=== PATIENT | female | born 1955 | race African-American/Black ===

== ENCOUNTER → 2017-02-06 | Outpatient (CLI) | payer OTHER ==
--- NOTE | 2017-02-06 12:22 | RADIOLOGY REPORT (SQ) ---
EXAM DESCRIPTION: RIBS LEFT W/PA CHEST COMPLETED DATE/TIME: 02/06/2017 11:56 am REASON FOR STUDY: CHEST PAIN R07.9 CHEST PAIN, UNSPECIFIED M25.512 PAIN IN LEFT SHOULDER COMPARISON: None. TECHNIQUE: Frontal view of the chest and additional views of the left ribs acquired. NUMBER OF VIEWS: Three views LIMITATIONS: None. FINDINGS: FRONTAL CXR: No pneumothorax. No pleural effusion. No atelectasis or infiltrates. RIBS: No displaced rib fractures. No lytic or blastic bony lesions. OTHER: No other significant finding. IMPRESSION: NO PNEUMOTHORAX. NO DISPLACED RIB FRACTURES. COMMENT: SITE OF TRAUMA/COMPLAINT MARKED/STAMP COMPLETED: Yes TECHNICAL DOCUMENTATION: JOB ID: [id number] [employer]- All Rights Reserved
--- NOTE | 2017-02-06 12:23 | RADIOLOGY REPORT (SQ) ---
EXAM DESCRIPTION: SHOULDER LEFT 2 OR MORE VIEWS COMPLETED DATE/TIME: 02/06/2017 11:56 am REASON FOR STUDY: PAIN IN LEFT SHOULDER R07.9 CHEST PAIN, UNSPECIFIED M25.512 PAIN IN LEFT SHOULDE R COMPARISON: None. NUMBER OF VIEWS: Three views. TECHNIQUE: Internal rotation, external rotation, and Y view images acquired of the left shoulder. LIMITATIONS: None. FINDINGS: MINERALIZATION: Normal. BONES: No acute fracture or dislocation. No worrisome bone lesions. JOINTS: No dislocation. VISUALIZED LUNGS AND RIBS: No pneumothorax. No rib fracture. SOFT TISSUES: No radiopaque foreign body. OTHER: No other significant finding. IMPRESSION: NEGATIVE STUDY OF THE LEFT SHOULDER. NO RADIOGRAPHIC EVIDENCE OF ACUTE INJURY. TECHNICAL DOCUMENTATION: JOB ID: [id number] [employer]- All Rights Reserved
== END ==
LOC: RAD 11:32
DX: R07.9 Chest pain, unspecified (principal); M25.512 Pain in left shoulder

== ENCOUNTER 2017-07-18 11:55 | Observation (INO) | payer SELFPAY ==
[2017-07-18] MEDS ORDERED: NORMAL SALINE 1000 ML 1,000 ML IV ONE (12:23)
--- NOTE | 2017-07-18 12:30 | ER Document Report ---
ED Medical Screen (RME) - General Chief Complaint: High Blood Sugar Stated Complaint: ELEVATED BLOOD SUGAR Time Seen by Provider: 07/18/17 12:22 Notes: RAPID MEDICAL EVALUATION DISCLOSURE I have seen this patient as part of a Rapid Medical Evaluation and, if applicable, placed any initially appropriate orders. The patient will be seen and fully evaluated, including a full history and physical exam, by a provider ( in Main ED or Fast Track) when a room becomes available. 61-year-old female no prior history of diabetes sent here from the [facility] for elevated blood sugar of 580. She was seen there for bilateral shoulder pain and was going to be put on steroids so they checked her blood sugar however noted that it was elevated. They then gave her a shot of insulin and checked it again 20 minutes later and it was unchanged. Over the past 2 weeks the patient has been having moderate burning with urination and felt like she might have a urine infection so she went to the pharmacy and purchased some [id number] medication for UTI. Her symptoms have not improved and she continues to have the burning with urination. She denies having any cough congestion runny nose sore throat diarrhea but did have an episode of vomiting 2 days ago and since then has been having lightheadedness and generalized weakness. NOTE Echocardiogram from 2016 reveals EF greater than 60% TRAVEL OUTSIDE OF THE [place] IN LAST 30 DAYS: No - Related Data Allergies/Adverse Reactions: No Known Allergies Allergy (Verified 07/18/17 11:56) Past Medical History - Social History Chew tobacco use (# tins/day): No Frequency of alcohol use: None Drug Abuse: None - Past Medical History Cardiac Medical History: Reports: Hx Congestive Heart Failure, Hx Hypertension Denies: Hx DVT, Hx Heart Attack, Hx Pulmonary Embolism Pulmonary Medical History: Denies: Hx Asthma, Hx COPD Neurological Medical History: Denies: Hx Seizures Endocrine Medical History: Denies: Hx Diabetes Mellitus Type 1, Hx Diabetes Mellitus Type 2, Hx Hyperthyroidism, Hx Hypothyroidism Renal/ Medical History: Denies: Hx Peritoneal Dialysis GI Medical History: Reports: Hx Gastroesophageal Reflux Disease. Denies: Hx Cirrhosis, Hx Hepatitis Musculoskeltal Medical History: Denies Hx Arthritis Skin Medical History: Denies Hx Eczema, Denies Hx Psoriasis Psychiatric Medical History: Reports: Hx Depression Infectious Medical History: Denies: Hx Hepatitis Past Surgical History: Reports: Hx Appendectomy, Hx Section, Hx Hysterectomy - Immunizations Hx Diphtheria, Pertussis, Tetanus Vaccination: No Physical Exam - Vital signs Vitals: Temp Pulse Resp BP Pulse Ox 98.6 F 83 20 93/59 L 97 07/18/17 12:15 07/18/17 12:15 07/18/17 12:15 07/18/17 12:15 07/18/17 12:15 Course - Vital Signs Vital signs: Temp Pulse Resp BP Pulse Ox 98.6 F 83 20 93/59 L 97 07/18/17 12:15 07/18/17 12:15 07/18/17 12:15 07/18/17 12:15 07/18/17 12:15
--- NOTE | 2017-07-18 12:39 | ER Document Report ---
ED Blood Sugar Problem - General Chief Complaint: High Blood Sugar Stated Complaint: ELEVATED BLOOD SUGAR Time Seen by Provider: 07/18/17 12:22 Notes: This is a 61-year-old female patient who presents from an outpatient clinic for evaluation of hyperglycemia. Patient has been having polydipsia and polyuria with blurred vision and generally not feeling well over the last several weeks. Went to the clinic today and blood sugar was found to be elevated. Received a shot of long-acting insulin and sent to the emergency department for further evaluation. Patient denies any loss of consciousness. Denies any significant chest pain. Denies any other major issues at this time. Patient states that she has never been told she has diabetes. Has been told in the past that she had high blood pressure but now her blood pressure is low. States that she used to run a lot and has always been quite healthy so is shocked to find out that she may have diabetes. TRAVEL OUTSIDE OF THE [place] IN LAST 30 DAYS: No - HPI Onset: Last week Onset/Duration: Gradual, Worse Quality of pain: No pain - Related Data Allergies/Adverse Reactions: No Known Allergies Allergy (Verified 07/18/17 11:56) Past Medical History - General Information source: Patient - Social History Smoking Status: Former Smoker Cigarette use (# per day): No Chew tobacco use (# tins/day): No Frequency of alcohol use: None Drug Abuse: None Lives with: Family Family History: Reviewed & Not Pertinent Patient has suicidal ideation: No Patient has homicidal ideation: No - Past Medical History Cardiac Medical History: Reports: Hx Congestive Heart Failure, Hx Hypertension Denies: Hx DVT, Hx Heart Attack, Hx Pulmonary Embolism Pulmonary Medical History: Denies: Hx Asthma, Hx COPD Neurological Medical History: Denies: Hx Seizures Endocrine Medical History: Denies: Hx Diabetes Mellitus Type 1, Hx Diabetes Mellitus Type 2, Hx Hyperthyroidism, Hx Hypothyroidism Renal/ Medical History: Denies: Hx Peritoneal Dialysis GI Medical History: Reports: Hx Gastroesophageal Reflux Disease. Denies: Hx Cirrhosis, Hx Hepatitis Musculoskeltal Medical History: Denies Hx Arthritis Skin Medical History: Denies Hx Eczema, Denies Hx Psoriasis Psychiatric Medical History: Reports: Hx Depression Infectious Medical History: Denies: Hx Hepatitis Past Surgical History: Reports: Hx Appendectomy, Hx Section, Hx Hysterectomy - Immunizations Hx Diphtheria, Pertussis, Tetanus Vaccination: No Review of Systems - Review of Systems Constitutional: Malaise, Weakness. denies: Fever EENT: Blurred vision. denies: Throat pain, Difficulty swallowing, Throat swelling Cardiovascular: denies: Chest pain, Palpitations, Heart racing Respiratory: denies: Cough, Hurts to breathe, Short of breath, Wheezing Gastrointestinal: denies: Abdominal pain, Diarrhea, Nausea, Vomiting Genitourinary: denies: Burning, Dysuria, Frequency, Flank pain Musculoskeletal: denies: Back pain, Gout, Joint pain Skin: denies: Dryness, Lesions, Rash Hematologic/Lymphatic: Other - Describes polydipsia and polyuria. denies: Anemia, Blood clots, Easy bleeding, Easy bruising Neurological/Psychological: Weakness. denies: Confusion, Numbness Physical Exam - Vital signs Vitals: Temp Pulse Resp BP Pulse Ox 98.6 F 83 20 93/59 L 97 07/18/17 12:15 07/18/17 12:15 07/18/17 12:15 07/18/17 12:15 07/18/17 12:15 Interpretation: Normal - General General appearance: Appears well, Alert - HEENT Head: Normocephalic, Atraumatic Eyes: Normal Pupils: PERRL - Respiratory Respiratory status: No respiratory distress Chest status: Nontender Breath sounds: Normal Chest palpation: Normal - Cardiovascular Rhythm: Regular Heart sounds: Normal auscultation Murmur: No - Abdominal Inspection: Normal Distension: No distension Bowel sounds: Normal Tenderness: Nontender Organomegaly: No organomegaly - Back Back: Normal, Nontender - Extremities General upper extremity: Normal inspection, Nontender, Normal color, Normal ROM , Normal temperature General lower extremity: Normal inspection, Nontender, Normal color, Normal ROM , Normal temperature, Normal weight bearing. No: Jeny's sign - Neurological Neuro grossly intact: Yes Cognition: Normal Orientation: AAOx4 Stephan Coma Scale Eye Opening: Spontaneous Coretta Coma Scale Verbal: Oriented Coretta Coma Scale Motor: Obeys Commands Coretta Coma Scale Total: 15 Speech: Normal Motor strength normal: LUE, RUE, LLE, RLE Sensory: Normal - Psychological Associated symptoms: Normal affect, Normal mood - Skin Skin Temperature: Warm Skin Moisture: Dry Skin Color: Normal Course - Re-evaluation Re-evalutation: 07/18/17 14:16 Laboratory 07/18/17 07/18/17 07/18/17 12:46 12:46 12:46 WBC 9.5 RBC 3.56 L Hgb 11.7 L Hct 36.1 MCV 101 H MCH 32.9 MCHC 32.4 RDW 14.9 H Plt Count 304 Seg Neutrophils % 54.4 Lymphocytes % 32.3 Monocytes % 7.5 Eosinophils % 4.2 Basophils % 1.6 Absolute Neutrophils 5.2 Absolute Lymphocytes 3.1 Absolute Monocytes 0.7 Absolute Eosinophils 0.4 Absolute Basophils 0.2 VBG pH 7.40 VBG pCO2 28.2 L VBG HCO3 17.0 L VBG Base Excess -6.6 Sodium 138.4 Potassium 3.6 Chloride 99 Carbon Dioxide 21 L Anion Gap 18 BUN 4 L Creatinine 0.53 Est GFR ( Amer) > 60 Est GFR (Non-Af Amer) > 60 Glucose 562 H* Hemoglobin A1c % Calcium 9.2 Phosphorus 3.0 Magnesium 2.1 Total Bilirubin 0.3 Direct Bilirubin 0.3 Neonat Total Bilirubin Not Reportable Neonat Direct Bilirubin Not Reportable Neonat Indirect Bili Not Reportable AST 51 H ALT 37 Alkaline Phosphatase 72 Troponin I Total Protein 6.7 Albumin 3.8 Urine Color Urine Appearance Urine pH Ur Specific [place] Urine Protein Urine Glucose (UA) Urine Ketones Urine Blood Urine Nitrite Urine Bilirubin Urine Urobilinogen Ur Leukocyte Esterase Urine WBC (Auto) Urine RBC (Auto) Urine Ascorbic Acid 07/18/17 07/18/17 07/18/17 12:46 12:46 12:57 WBC RBC Hgb Hct MCV MCH MCHC RDW Plt Count Seg Neutrophils % Lymphocytes % Monocytes % Eosinophils % Basophils % Absolute Neutrophils Absolute Lymphocytes Absolute Monocytes Absolute Eosinophils Absolute Basophils VBG pH VBG pCO2 VBG HCO3 VBG Base Excess Sodium Potassium Chloride Carbon Dioxide Anion Gap BUN Creatinine Est GFR ( Amer) Est GFR (Non-Af Amer) Glucose Hemoglobin A1c % 9.3 H Calcium Phosphorus Magnesium Total Bilirubin Direct Bilirubin Neonat Total Bilirubin Neonat Direct Bilirubin Neonat Indirect Bili AST ALT Alkaline Phosphatase Troponin I < 0.012 Total Protein Albumin Urine Color COLORLESS Urine Appearance CLEAR Urine pH 5.0 Ur Specific [place] 1.017 Urine Protein NEGATIVE Urine Glucose (UA) >=500 H Urine Ketones NEGATIVE Urine Blood NEGATIVE Urine Nitrite NEGATIVE Urine Bilirubin NEGATIVE Urine Urobilinogen NEGATIVE Ur Leukocyte Esterase NEGATIVE Urine WBC (Auto) 0 Urine RBC (Auto) 0 Urine Ascorbic Acid NEGATIVE At this time patient has blood sugar over 500. Hemoglobin A1c of 9.3. Glucose the urine. Patient has some limited outpatient resources. Feel uncomfortable discharging. Would like to admit her at this time. Consult with medicine who will admit for treatment of her new onset diabetes. - Vital Signs Vital signs: Temp Pulse Resp BP Pulse Ox 98.6 F 83 17 102/79 98 07/18/17 12:15 07/18/17 12:15 07/18/17 13:01 07/18/17 13:01 07/18/17 13:01 - Laboratory Result Diagrams: 07/18/17 12:46 07/18/17 12:46 Laboratory results interpreted by me: 07/18/17 07/18/17 07/18/17 12:46 12:46 12:46 RBC 3.56 L Hgb 11.7 L MCV 101 H RDW 14.9 H VBG pCO2 28.2 L VBG HCO3 17.0 L Carbon Dioxide 21 L BUN 4 L Glucose 562 H* Hemoglobin A1c % AST 51 H Urine Glucose (UA) 07/18/17 07/18/17 12:46 12:57 RBC Hgb MCV RDW VBG pCO2 VBG HCO3 Carbon Dioxide BUN Glucose Hemoglobin A1c % 9.3 H AST Urine Glucose (UA) >=500 H - EKG Interpretation by Ga EKG shows normal: Sinus rhythm, [place], Intervals, QRS Complexes, ST-T Waves Discharge - Discharge Clinical Impression: Hyperglycemia due to type 2 diabetes mellitus Qualifiers: Diabetes mellitus rat exterminator insulin use: without rat exterminator use Qualified Code(s ): E11.65 - Type 2 diabetes mellitus with hyperglycemia Condition: Good Disposition: ADMITTED INPATIENT Admitting Provider: [facility] Unit Admitted: Medical Floor
[2017-07-18 13:00] LABS: ABSOLUTE BASOPHILS # (AUTO) 0.2 10^3/uL (0.0-0.2); ABSOLUTE EOSINOPHILS # (AUTO) 0.4 10^3/uL (0.0-0.6); ABSOLUTE LYMPHOCYTES (AUTO) 3.1 10^3/uL (0.5-4.7); ABSOLUTE MONOCYTES (AUTO) 0.7 10^3/uL (0.1-1.4); ABSOLUTE NEUT (AUTO) 5.2 10^3/uL (1.7-8.2); BASOPHILS % (AUTO) 1.6 % (0-2); EOSINOPHILS % (AUTO) 4.2 % (0-6); HEMATOCRIT 36.1 % (36.0-47.0); HEMOGLOBIN 11.7 g/dL (12.0-15.5); LYMPHOCYTES % (AUTO) 32.3 % (13-45); MEAN CORPUSCULAR HEMOGLOBIN 32.9 pg (27.0-33.4); MEAN CORPUSCULAR HGB CONC 32.4 g/dL (32.0-36.0); MEAN CORPUSCULAR VOLUME 101 fl (80-97); MONOCYTES % (AUTO) 7.5 % (3-13); PLATELET COUNT 304 10^3/uL (150-450); RED BLOOD COUNT 3.56 10^6/uL (3.72-5.28); RED CELL DISTRIBUTION WIDTH 14.9 % (11.5-14.0); SEGMENTED NEUTROPHILS % (AUTO) 54.4 % (42-78); TOTAL CELLS COUNTED % (AUTO) 100 %; VENOUS BLOOD BASE EXCESS -6.6 mmol/L; VENOUS BLOOD PCO2 28.2 mmHg (35-63); VENOUS BLOOD PH 7.4 (7.30-7.42); WHITE BLOOD COUNT 9.5 10^3/uL (4.0-10.5)
[2017-07-18 13:20] LABS: APPEARANCE,URINE CLEAR; BILIRUBIN,URINE NEGATIVE (NEGATIVE); COLOR,URINE COLORLESS; GLUCOSE, URINE >=500 mg/dL (NEGATIVE); KETONES,URINE NEGATIVE (NEGATIVE); LEUKOCYTE ESTERASE,URINE NEGATIVE (NEGATIVE); NITRITE,URINE NEGATIVE (NEGATIVE); PROTEIN,URINE NEGATIVE (NEGATIVE); URINE SPECIFIC GRAVITY 1.017; UROBILINOGEN,URINE NEGATIVE mg/dL (<2.0)
[2017-07-18 13:26] LABS: ALANINE AMINOTRANSFERASE 37 U/L (9-52); ALBUMIN 3.8 g/dL (3.5-5.0); ALKALINE PHOSPHATASE 72 U/L (38-126); ANION GAP 18 (5-19); ASPARTATE AMINO TRANSFERASE 51 U/L (14-36); BILIRUBIN,DIRECT 0.3 mg/dL (0.0-0.4); BILIRUBIN,TOTAL 0.3 mg/dL (0.2-1.3); BLOOD UREA NITROGEN 4 mg/dL (7-20); CALCIUM 9.2 mg/dL (8.4-10.2); CARBON DIOXIDE 21 mmol/L (22-30); CHLORIDE 99 mmol/L (98-107); POTASSIUM 3.6 mmol/L (3.6-5.0); SODIUM 138.4 mmol/L (137-145); TOTAL PROTEIN 6.7 g/dL (6.3-8.2)
[2017-07-18 13:47] LABS: GLUCOSE 562 mg/dL (75-110)
[2017-07-18] MEDS ORDERED: MAG HYDROX/AL HYDROX/SIMETH SUSP 30 ML UDCUP PO PRN (15:04)
[2017-07-18] MEDS ORDERED: IPRATROPIUM/ALBUTEROL 0.5-2.5 MG/3 ML AMPUL NEB PRN (15:04)
[2017-07-18] MEDS ORDERED: PROMETHAZINE HCL INJ 25 MG/1 ML VIAL IV PRN (15:04)
[2017-07-18] MEDS ORDERED: ACETAMINOPHEN 650 MG SUPP.RECT PR PRN (15:04)
[2017-07-18] MEDS ORDERED: ONDANSETRON HCL INJ/PF 4 MG/2 ML SDV IV PRN (15:04)
[2017-07-18] MEDS ORDERED: MAGNESIUM HYDROXIDE SUSP 30 ML UDCUP PO PRN (15:04)
[2017-07-18] MEDS ORDERED: TRAMADOL HCL 50 MG TABLET PO PRN (15:09)
[2017-07-18] MEDS ORDERED: DEXTROSE 50%-WATER 25 GM/50 ML DISP.SYRIN IV PRN ×2 (15:10)
[2017-07-18] MEDS ORDERED: DEXTROSE 40% GEL 15 GM TUBE PO PRN ×2 (15:10)
[2017-07-18] MEDS ORDERED: GLUCAGON,HUMAN RECOMB 1 MG INJ IM PRN (15:10)
[2017-07-18] MEDS ORDERED: INSULIN LISPRO 100 UNIT/ML 3 ML VIAL SUBCUT ONE (16:00)
[2017-07-18] MEDS ORDERED: LIDOCAINE 5% (700 MG) TRANSDERMAL ADH..PATCH TP ONE (16:00)
--- NOTE | 2017-07-18 16:45 | PDOC H&P ---
History of Present Illness Admission Date/PCP: 07/18/17 14:39 [facility] Patient complains of: Blurred vision History of Present Illness: ANGUS CUADRA is a 61 year old female with a past medical history significant for chronic shoulder pain, hypertension (not on antihypertensive medications), and a pacemaker who was sent from her primary care provider's office for an elevated blood sugar. The patient had an appointment with her primary care provider to discuss her shoulder pain, blurred vision, polydipsia and polyuria that have been ongoing for approximately 1 month and gradually worsening. The patient reports that upon arrival to the clinic, she was found to have a blood glucose meter 600. Her primary care provider reported that they provided NovoLog 6 units subcutaneous and directed the patient to follow-up at the emergency department for further evaluation. Evaluation in the department revealed mild anemia with hemoglobin of 11.7, a glucose of 562, and A1c of 9.3. Her workup was otherwise unremarkable. The patient does not have a strong support system and is unfamiliar with diabetes, therefore she was referred to the hospitalist service for observational admission for diabetes management and education. Past Medical History Cardiac Medical History: Reports: Congestive Heart Failure, Hypertension Denies: DVT, Myocardial Infarction, Pulmonary Embolism Pulmonary Medical History: Reports: None Denies: Asthma, Chronic Obstructive Pulmonary Disease (COPD) EENT Medical History: Reports: None Neurological Medical History: Reports: None Denies: Seizures Endocrine Medical History: Denies: Diabetes Mellitus Type 1, Diabetes Mellitus Type 2, Hyperthyroidism, Hypothyroidism Renal/ Medical History: Reports: None Malignancy Medical History: Reports: None GI Medical History: Reports: Gastroesophageal Reflux Disease Denies: Cirrhosis, Hepatitis Musculoskeltal Medical History: Reports: Arthritis Skin Medical History: Denies: Eczema, Psoriasis Psychiatric Medical History: Reports: Depression Denies: Tobacco Dependency Hematology: Reports: None Infectious Medical History: Reports: None Past Surgical History Past Surgical History: Reports: Appendectomy, Section, Hysterectomy, Pacemaker Social History Information Source: Patient Lives with: Family Smoking Status: Former Smoker Frequency of Alcohol Use: Rare - History of heavy alcohol use. Hx Recreational Drug Use: No Drugs: None Hx Prescription Drug Abuse: No - Advance Directive Resuscitation Status: Do Not Resuscitate Family History Family History: Reviewed & Not Pertinent. denies: CAD, DM, Hypertension Parental Family History Reviewed: No Children Family History Reviewed: No Sibling(s) Family History Reviewed.: No Medication/Allergy Home Medications: RX: Escitalopram Oxalate [Lexapro 10 mg Tablet] 10 mg PO DAILY 07/18/17 Allergies/Adverse Reactions: No Known Allergies Allergy (Verified 07/18/17 11:56) Review of Systems Constitutional: ABSENT: chills, fever(s), headache(s), weight gain, weight loss Eyes: PRESENT: visual disturbances Ears: ABSENT: hearing changes Nose, Mouth, and Throat: ABSENT: headache(s) Cardiovascular: ABSENT: chest pain, dyspnea on exertion, edema, orthropnea, palpitations Respiratory: ABSENT: cough, hemoptysis Gastrointestinal: ABSENT: abdominal pain, constipation, diarrhea, hematemesis, hematochezia, nausea, vomiting Genitourinary: ABSENT: dysuria, hematuria Musculoskeletal: ABSENT: joint swelling Integumentary: ABSENT: rash, wounds Neurological: ABSENT: abnormal gait, abnormal speech, confusion, dizziness, focal weakness, syncope Psychiatric: ABSENT: anxiety, depression, homidical ideation, suicidal ideation Endocrine: PRESENT: polydipsia, polyuria. ABSENT: cold intolerance, heat intolerance Hematologic/Lymphatic: ABSENT: easy bleeding, easy bruising Physical Exam Vital Signs: Temp Pulse Resp BP Pulse Ox 98.6 F 83 17 102/79 98 07/18/17 12:15 07/18/17 12:15 07/18/17 13:01 07/18/17 13:01 07/18/17 13:01 General appearance: PRESENT: no acute distress, cooperative, well-developed, well-nourished Head exam: PRESENT: atraumatic, normocephalic Eye exam: PRESENT: conjunctiva pink, EOMI, PERRLA. ABSENT: scleral icterus Ear exam: PRESENT: normal external ear exam Mouth exam: PRESENT: moist, tongue midline Neck exam: ABSENT: carotid bruit, JVD, lymphadenopathy, thyromegaly Respiratory exam: PRESENT: clear to auscultation madelaine, symmetrical, unlabored. ABSENT: rales, rhonchi, wheezes Cardiovascular exam: PRESENT: RRR, +S1, +S2. ABSENT: diastolic murmur, rubs, systolic murmur Pulses: PRESENT: normal dorsalis pedis pul Vascular exam: PRESENT: normal capillary refill GI/Abdominal exam: PRESENT: normal bowel sounds, soft. ABSENT: distended, guarding, mass, organolmegaly, rebound, tenderness Rectal exam: PRESENT: deferred Extremities exam: PRESENT: full ROM. ABSENT: calf tenderness, clubbing, pedal edema Neurological exam: PRESENT: alert, awake, oriented to person, oriented to place , oriented to time, oriented to situation, CN II-XII grossly intact. ABSENT: motor sensory deficit Psychiatric exam: PRESENT: appropriate affect, normal mood. ABSENT: homicidal ideation, suicidal ideation Skin exam: PRESENT: dry, intact, warm. ABSENT: cyanosis, rash Assessment & Plan - Diagnosis (1) Hyperglycemia due to type 2 diabetes mellitus Qualifiers: Diabetes mellitus terminal superintendent insulin use: without [facility] use Qualified Code(s): E11.65 - Type 2 diabetes mellitus with hyperglycemia Is this a current diagnosis for this admission?: Yes Plan: New diagnosis of type 2 diabetes myelitis; patient presented to her primary care provider and was found to have a blood glucose of nearly 600. She denies previous history of diabetes and denies known family history of the same. Upon arrival to the emergency department she was found to have a sodium of 138, potassium 3.6, bicarb 21, anion gap 18, glucose of 562, and an A1c of 9.3. She was provided 1 L normal saline bolus by the ED provider. She is admitted to the medical floor. Continue IV maintenance fluids. She is placed on a consistent carb diet with Accu-Cheks before meals and at bedtime with Humalog for sliding scale coverage. Given her elevated A1c, will place the patient on Lantus 10 units nightly. We will also start the patient on mid range dose metformin; 850 mg twice daily. We will ask the registered dietitian and museum educator to meet with patient. Discussed with the patient that she will likely be discharged on both Lantus and metformin, however, the Lantus will likely be discontinued as her blood sugar becomes well controlled with oral diabetic medications. She is encouraged to ask questions. (2) Hypertension Is this a current diagnosis for this admission?: Yes Plan: The patient endorses a history of hypertension, however, is not on home antihypertensive medications. She is normotensive at present. Will monitor and initiate medications as needed. (3) Shoulder pain Qualifiers: Chronicity: chronic Laterality: left Qualified Code(s): M25.512 - Pain in left shoulder; G89.29 - Other chronic pain; G89.29 - Other chronic pain Is this a current diagnosis for this admission?: Yes Plan: Chronic left shoulder pain. Lidoderm patch and tramadol as needed. - Time Time Spent: 50 to 70 Minutes Medications reviewed and adjusted accordingly: Yes Anticipated discharge: Home Within: within 24 hours
[2017-07-18] MEDS: METFORMIN HCL 850 MG TABLET PO SCH (18:08)
--- NOTE | 2017-07-18 18:44 | EKG REPORT ---
SEVERITY:- BORDERLINE ECG - SINUS RHYTHM BORDERLINE T ABNORMALITIES, INFERIOR LEADS : Confirmed by: Jayson Nunez MD 18-Jul-2017 18:42:52
[2017-07-18] MEDS: NORMAL SALINE 1000 ML 1,000 ML IV PRN (18:51)
[2017-07-18] MEDS ORDERED: INSULIN GLARGINE,HUM.REC.ANLOG 300 UNIT/3 ML INSULN.PEN SUBCUT SCH (22:00)
[2017-07-18] MEDS: FAMOTIDINE 20 MG TABLET PO SCH (22:27)
[2017-07-18] MEDS: HEPARIN SOD (PORCINE) 5,000 UNIT/ML 1 ML SYRINGE SUBCUT SCH (22:27)
[2017-07-18] MEDS: INSULIN LISPRO 100 UNIT/ML 3 ML VIAL SUBCUT PRN (22:32)
[2017-07-19 06:07] LABS: HEMATOCRIT 33.3 % (36.0-47.0); HEMOGLOBIN 11.2 g/dL (12.0-15.5); MEAN CORPUSCULAR HEMOGLOBIN 33.3 pg (27.0-33.4); MEAN CORPUSCULAR HGB CONC 33.5 g/dL (32.0-36.0); MEAN CORPUSCULAR VOLUME 99 fl (80-97); PLATELET COUNT 249 10^3/uL (150-450); RED BLOOD COUNT 3.35 10^6/uL (3.72-5.28); RED CELL DISTRIBUTION WIDTH 14.7 % (11.5-14.0); WHITE BLOOD COUNT 9.6 10^3/uL (4.0-10.5)
[2017-07-19] MEDS: HEPARIN SOD (PORCINE) 5,000 UNIT/ML 1 ML SYRINGE SUBCUT SCH (06:28)
[2017-07-19 06:34] LABS: ANION GAP 9 (5-19); BLOOD UREA NITROGEN 6 mg/dL (7-20); CALCIUM 8.1 mg/dL (8.4-10.2); CARBON DIOXIDE 24 mmol/L (22-30); CHLORIDE 110 mmol/L (98-107); CHOLESTEROL 154.04 mg/dL (0-200); GLUCOSE 188 mg/dL (75-110); POTASSIUM 3.6 mmol/L (3.6-5.0); SODIUM 143.4 mmol/L (137-145); TRIGLYCERIDES 133 mg/dL (<150)
[2017-07-19 06:44] LABS: DIRECT LDL 104 mg/dL (<100)
[2017-07-19 06:45] LABS: FREE T4 (FREE THYROXINE) 0.88 ng/dL (0.78-2.19)
[2017-07-19 06:58] LABS: THYROID STIMULATING HORMONE 1.52 uIU/mL (0.47-4.68)
[2017-07-19] MEDS: INSULIN LISPRO 100 UNIT/ML 3 ML VIAL SUBCUT PRN ×2 (07:35→11:39)
[2017-07-19] MEDS: METFORMIN HCL 850 MG TABLET PO SCH (07:35)
[2017-07-19] MEDS ORDERED: DOCUSATE SODIUM 100 MG CAPSULE PO SCH (10:00)
[2017-07-19] MEDS ORDERED: ESCITALOPRAM OXALATE 10 MG TABLET PO SCH (10:00)
[2017-07-19] MEDS ORDERED: LIDOCAINE 5% (700 MG) TRANSDERMAL ADH..PATCH TP SCH (10:00)
[2017-07-19] MEDS: FAMOTIDINE 20 MG TABLET PO SCH (10:28)
[2017-07-19] MEDS: NORMAL SALINE 1000 ML 1,000 ML IV PRN (10:28)
[2017-07-19 12:59] VITALS: BP 126/81
--- NOTE | 2017-07-19 17:56 | PDOC DISCHARGE SUMMARY ---
General - Admit/Disc Date/PCP Admission Date/Primary Care Provider: 07/18/17 14:39 Discharge Date: 07/19/17 - Discharge Diagnosis (1) Hyperglycemia due to type 2 diabetes mellitus Is this a current diagnosis for this admission?: Yes Summary: The patient was admitted with a new diagnosis of type 2 diabetes mellitus. Upon arrival to the emergency department she was found to have a blood glucose of 562, bicarb of 21 and anion gap of 18. Her A1c was 9.3% Lipid panel was acceptable with an LDL of 104, HDL 36, triglycerides 133, total cholesterol 154. Her TSH was also appropriate 1.52 with a free T4 of 0.88. She was provided 1 L normal saline bolus by the emergency department and continued on IV maintenance fluids overnight. Given her elevated A1c she was started on Lantus qHS as well as metformin 850 mg twice daily. She met with our registered dietitian and agricultural extension educator to discuss carb counting and to learn how to self administer insulin injections. She was provided a glucometer and prescriptions for test strips, lancets, metformin 850 BID, and Lantus 6 units nightly. She was instructed to check her blood sugar 3 times daily (before breakfast, before dinner, and before bed) and to keep a log of these for follow-up with her primary care provider. She was advised to eat a snack and to hold her Lantus for a bedtime glucose of less than 70. She was encouraged to follow a consistent carb diet so that her primary care provider could consider discontinuation of Lantus in the near future. At time of discharge, the patient is in stable condition and maintaining oxygen saturations on room air. She is instructed to follow-up with her primary care provider within 1 week. (2) Hypertension Is this a current diagnosis for this admission?: Yes Summary: The patient endorses a history of hypertension, however, is not on home medications. She is normotensive during her admission other than 1 blood pressure of 143/76. We will defer initiation of antihypertensive medications to her primary care provider. (3) Shoulder pain Is this a current diagnosis for this admission?: Yes Summary: Chronic in nature. No acute injury. - Additional Information Resuscitation Status: Do Not Resuscitate Discharge Diet: Diabetic Discharge Activity: Activity As Tolerated Prescriptions: Blood Sugar Diagnostic [Test Strips] 1 each MC TID #90 strip Blood-Glucose Meter [Blood Glucose Meter] 1 unit MC ASDIR PRN #1 unit PRN Reason: Insulin Glargine,Hum.rec.anlog [Lantus Insulin 100 Unit/mL] 6 unit SUBCUT QHS # 1 insuln.pen Lancets [Blood Lancets] 1 each MC TID #90 each Metformin HCl [Glucophage 850 mg Tablet] 850 mg PO BIDBS #60 tablet Pen Needle, Diabetic, Safety [Healthy Accents Unifine Pentip] 1 each MC DAILY # 30 dis.needle Home Medications: Escitalopram Oxalate [Lexapro 10 mg Tablet] 10 mg PO DAILY 07/18/17 Multivitamin [Multivitamins] 1 each PO DAILY 07/18/17 Naproxen Sodium 220 mg PO Q12 PRN 07/18/17 Blood Sugar Diagnostic [Test Strips] 1 each MC TID #90 strip 07/19/17 Blood-Glucose Meter [Blood Glucose Meter] 1 unit MC ASDIR PRN #1 unit 07/19/17 Escitalopram Oxalate [Lexapro 10 mg Tablet] 10 mg PO DAILY tablet 07/19/17 Insulin Glargine,Hum.rec.anlog [Lantus Insulin 100 Unit/mL] 6 unit SUBCUT QHS # 1 insuln.pen 07/19/17 Lancets [Blood Lancets] 1 each MC TID #90 each 07/19/17 Metformin HCl [Glucophage 850 mg Tablet] 850 mg PO BIDBS #60 tablet 07/19/17 Pen Needle, Diabetic, Safety [Healthy Accents Unifine Pentip] 1 each MC DAILY # 30 dis.needle 07/19/17 History of Present Illness History of Present Illness: ANGUS CUADRA is a 61 year old female with a past medical history significant for chronic shoulder pain, hypertension (not on antihypertensive medications), and a pacemaker who was sent from her primary care provider's office for an elevated blood sugar. The patient had an appointment with her primary care provider to discuss her shoulder pain, blurred vision, polydipsia and polyuria that have been ongoing for approximately 1 month and gradually worsening. The patient reports that upon arrival to the clinic, she was found to have a blood glucose meter 600. Her primary care provider reported that they provided NovoLog 6 units subcutaneous and directed the patient to follow-up at the emergency department for further evaluation. Evaluation in the department revealed mild anemia with hemoglobin of 11.7, a glucose of 562, and A1c of 9.3. Her workup was otherwise unremarkable. The patient does not have a strong support system and is unfamiliar with diabetes, therefore she was referred to the hospitalist service for observational admission for diabetes management and education. Physical Exam Vital Signs: Temp Pulse Resp BP Pulse Ox 98.7 F 76 16 126/81 H 98 07/19/17 12:52 07/19/17 12:52 07/19/17 12:52 07/19/17 12:52 07/19/17 12:52 Intake & Output 07/18/17 07/19/17 07/20/17 06:59 06:59 06:59 Weight 60.1 kg General appearance: PRESENT: no acute distress, cooperative - Pleasant, well- developed, well-nourished, other - Overweight Head exam: PRESENT: atraumatic, normocephalic Eye exam: PRESENT: conjunctiva pink, EOMI, PERRLA. ABSENT: scleral icterus Ear exam: PRESENT: normal external ear exam Mouth exam: PRESENT: moist, tongue midline Neck exam: ABSENT: carotid bruit, JVD, lymphadenopathy, thyromegaly Respiratory exam: PRESENT: clear to auscultation madelaine, symmetrical, unlabored. ABSENT: rales, rhonchi, wheezes Cardiovascular exam: PRESENT: RRR, +S1, +S2. ABSENT: diastolic murmur, rubs, systolic murmur Pulses: PRESENT: normal dorsalis pedis pul Vascular exam: PRESENT: normal capillary refill GI/Abdominal exam: PRESENT: normal bowel sounds, soft. ABSENT: distended, guarding, mass, organolmegaly, rebound, tenderness Rectal exam: PRESENT: deferred Extremities exam: PRESENT: full ROM. ABSENT: calf tenderness, clubbing, pedal edema Neurological exam: PRESENT: alert, awake, oriented to person, oriented to place , oriented to time, oriented to situation, CN II-XII grossly intact. ABSENT: motor sensory deficit Psychiatric exam: PRESENT: appropriate affect, normal mood. ABSENT: homicidal ideation, suicidal ideation Skin exam: PRESENT: dry, intact, warm. ABSENT: cyanosis, rash Results Laboratory Results: 07/19/17 05:46 07/19/17 05:46 07/19/17 07/19/17 07/19/17 05:46 05:46 05:46 WBC 9.6 RBC 3.35 L Hgb 11.2 L Hct 33.3 L MCV 99 H MCH 33.3 MCHC 33.5 RDW 14.7 H Plt Count 249 Sodium 143.4 Potassium 3.6 Chloride 110 H Carbon Dioxide 24 Anion Gap 9 BUN 6 L Creatinine 0.76 Est GFR ( Amer) > 60 Est GFR (Non-Af Amer) > 60 Glucose 188 H Calcium 8.1 L Triglycerides 133 Cholesterol 154.04 LDL Cholesterol Direct 104 H VLDL Cholesterol 27.0 HDL Cholesterol 36 L TSH 1.52 Free T4 0.88 Qualifiers - * PATIENT BEING DISCHARGED WITH ANY OF THE FOLLOWING DIAGNOSIS: No Plan Discharge Plan: Discharge to home with self-care. Follow with primary care provider within 1 week.
== END 2017-07-19 13:25 | disposition home or self-care (01) ==
LOC: ER 11:55 → INTOOBSV 14:39 → EH 14:39 → 5 16:22
PROVIDERS: ADMIT Internal Medicine; ATTEND Internal Medicine
DX: E11.65 Type 2 diabetes mellitus with hyperglycemia (principal); I10 Essential (primary) hypertension; G89.29 Other chronic pain; M25.512 Pain in left shoulder; E66.3 Overweight; R30.0 Dysuria; M19.90 Unspecified osteoarthritis, unspecified site; Z68.25 Body mass index [BMI] 25.0-25.9, adult; Z66 Do not resuscitate; Z95.0 Presence of cardiac pacemaker; Z87.891 Personal history of nicotine dependence; Z90.49 Acquired absence of other specified parts of digestive tract
CPT/HCPCS: 93005; 99285; 96360; 36415 ×2; 87086; 84439; 82010; 82962 ×2; 83735; 84100; 84443; 85025; 85027; 80048; 80053; 81001; 84484; 83036; 82803; 80061; 93010; J1644 ×2; J1815 ×3; J3490 ×3; J7030 ×2

== ENCOUNTER → 2017-10-18 | Outpatient (CLI) | payer OTHER ==
[2017-10-18 09:10] LABS: ALANINE AMINOTRANSFERASE 36 U/L (9-52); ALBUMIN 4.1 g/dL (3.5-5.0); ALKALINE PHOSPHATASE 71 U/L (38-126); ANION GAP 16 (5-19); ASPARTATE AMINO TRANSFERASE 46 U/L (14-36); BILIRUBIN,DIRECT 0.4 mg/dL (0.0-0.4); BILIRUBIN,TOTAL 0.6 mg/dL (0.2-1.3); BLOOD UREA NITROGEN 10 mg/dL (7-20); CALCIUM 9.2 mg/dL (8.4-10.2); CARBON DIOXIDE 25 mmol/L (22-30); CHLORIDE 101 mmol/L (98-107); CHOLESTEROL 222.75 mg/dL (0-200); GLUCOSE 177 mg/dL (75-110); POTASSIUM 3.8 mmol/L (3.6-5.0); SODIUM 141.7 mmol/L (137-145); TOTAL PROTEIN 7.4 g/dL (6.3-8.2); TRIGLYCERIDES 135 mg/dL (<150)
[2017-10-18 09:21] LABS: DIRECT LDL 143 mg/dL (<100)
== END ==
LOC: CCC 07:27
DX: E11.8 Type 2 diabetes mellitus with unspecified complications (principal)
CPT/HCPCS: 36415; 80053; 80061; 83036

== ENCOUNTER → 2018-03-14 | Outpatient (CLI) | payer OTHER ==
[2018-03-14 14:04] LABS: FOLATE > 20.00 ng/mL (>2.76)
== END ==
LOC: CCC 11:38
DX: E13.40 Other specified diabetes mellitus with diabetic neuropathy, unspecified (principal)
CPT/HCPCS: 36415; 82607; 82746

== ENCOUNTER → 2018-04-18 | Outpatient (CLI) | payer OTHER ==
--- NOTE | 2018-04-18 13:13 | RADIOLOGY REPORT (SQ) ---
EXAM DESCRIPTION: SHOULDER BILAT 2 OR MORE VIEWS COMPLETED DATE/TIME: 04/18/2018 10:46 am REASON FOR STUDY: BILATERAL SHOULDER PAIN M25.512 PAIN IN LEFT SHOULDER M25.511 PAIN IN RIGHT SHOU LDER COMPARISON: None. NUMBER OF VIEWS: Three views. TECHNIQUE: Internal rotation, external rotation, and Y view images acquired of the right and left sh oulder. LIMITATIONS: None. FINDINGS: MINERALIZATION: Normal. BONES: No acute fracture or dislocation. No worrisome bone lesions. No significant osteophytes. GLENOHUMERAL JOINT: Mild degenerative changes with medial humeral osteophyte. Present in both should ers. ACROMIOCLAVICULAR JOINT: No large osteophytes. SOFT TISSUES: No calcifications. VISUALIZED RIBS, SPINE, AND LUNG: No other significant finding. OTHER: Pacemaker. IMPRESSION: Mild osteoarthritis of the glenohumeral joint. TECHNICAL DOCUMENTATION: JOB ID: [id number] [employer]- All Rights Reserved Reading location - IP/workstation name: [email or web address]
== END ==
LOC: CCC 10:29
DX: M25.512 Pain in left shoulder (principal); M25.511 Pain in right shoulder; M19.012 Primary osteoarthritis, left shoulder; M19.011 Primary osteoarthritis, right shoulder

== ENCOUNTER 2018-10-31 13:20 | Emergency (ER) | payer MEDICAID, OTHER ==
[2018-10-31 13:25] VITALS: BP 154/91
--- NOTE | 2018-10-31 13:48 | ER Document Report ---
ED General - General Chief Complaint: Medication Refill Stated Complaint: MED REFILL Time Seen by Provider: 10/31/18 13:48 Primary Care Provider: [facility] [Primary Care Provider] - Follow up in 3-5 days TRAVEL OUTSIDE OF THE [place] IN LAST 30 DAYS: No - HPI Notes: 62-year-old female to the emergency department for medication refill. She states that one week ago she got out of alcohol detox. She was told to follow with her primary care physician either get prescribed Naltrexone or acomprosate for her alcohol addiction. She states that she is supposed to see her primary care Sunday or Sunday but she did not make the appointment. She states that she typically can keep sober for 2 weeks but then she relapses. She states that she has not had any tremors or any seizure like activity. She states that she is otherwise doing well with no suicidal thoughts or homicidal thoughts. She denies any hallucinations. - Related Data Allergies/Adverse Reactions: No Known Allergies Allergy (Verified 10/31/18 13:24) Past Medical History - General Information source: Patient - Social History Smoking Status: Current Every Day Smoker Frequency of alcohol use: Recent detox Drug Abuse: None Family History: Reviewed & Not Pertinent. denies: CAD, DM, Hypertension - Past Medical History Cardiac Medical History: Reports: Hx Congestive Heart Failure, Hx Hypertension Denies: Hx DVT, Hx Heart Attack, Hx Pulmonary Embolism Pulmonary Medical History: Denies: Hx Asthma, Hx Bronchitis, Hx COPD, Hx Pneumonia, Hx Tuberculosis Neurological Medical History: Denies: Hx Seizures Endocrine Medical History: Denies: Hx Diabetes Mellitus Type 1, Hx Diabetes Mellitus Type 2, Hx Hyperthyroidism, Hx Hypothyroidism Renal/ Medical History: Denies: Hx End Stage Renal Disease, Hx Kidney Stones, Hx Peritoneal Dialysis GI Medical History: Reports: Hx Gastroesophageal Reflux Disease. Denies: Hx Cirrhosis, Hx Hepatitis, Hx Ulcer Musculoskeletal Medical History: Reports Hx Arthritis, Denies Hx Multiple Sclerosis Skin Medical History: Denies Hx Eczema, Denies Hx Psoriasis Psychiatric Medical History: Reports: Hx Depression Denies: Hx Bipolar Disorder, Hx Schizophrenia Infectious Medical History: Denies: Hx Hepatitis Past Surgical History: Reports: Hx Appendectomy, Hx Section, Hx Hysterectomy, Hx Pacemaker - Immunizations Hx Diphtheria, Pertussis, Tetanus Vaccination: No Hx Pneumococcal Vaccination: 02/27/16 Review of Systems - Review of Systems Constitutional: denies: Chills, Fever EENT: No symptoms reported Cardiovascular: No symptoms reported Respiratory: No symptoms reported Gastrointestinal: No symptoms reported. denies: Abdominal pain, Diarrhea, Nausea, Vomiting Genitourinary: No symptoms reported Skin: No symptoms reported Hematologic/Lymphatic: No symptoms reported Neurological/Psychological: denies: Confusion, Depression, Anxiety, Seizure, Tremor -: Yes All other systems reviewed and negative Physical Exam - Vital signs Vitals: Temp Pulse Resp BP Pulse Ox 98.1 F 60 16 154/91 H 96 10/31/18 13:23 10/31/18 13:23 10/31/18 13:23 10/31/18 13:23 10/31/18 13:23 Interpretation: Normal - General General appearance: Appears well, Alert In distress: None - HEENT Head: Normocephalic, Atraumatic Eyes: Normal Pupils: PERRL - Respiratory Respiratory status: No respiratory distress Chest status: Nontender Breath sounds: Normal Chest palpation: Normal - Cardiovascular Rhythm: Regular Heart sounds: Normal auscultation Murmur: No - Neurological Neuro grossly intact: Yes Cognition: Normal Orientation: AAOx4 [place] Coma Scale Eye Opening: Spontaneous [place] Coma Scale Verbal: Oriented [place] Coma Scale Motor: Obeys Commands [place] Coma Scale Total: 15 Speech: Normal Cranial nerves: Normal. No: Facial palsy, Forehead sparing, Gaze palsy, Sensory deficit, Tongue deviation Cerebellar coordination: Normal. 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 No: Pronator drift Sensory: Normal - Psychological Associated symptoms: Normal affect, Normal mood - Skin Skin Temperature: Warm Skin Moisture: Dry Skin Color: Normal Course - Re-evaluation Re-evalutation: 10/31/18 Discussed with patient treatment options. Do believe that she needs to have the medicines that she requested written by her primary care physician and monitored closely. Did offer her Librium. She states that she has used this before and it does work for her. She is satisfied with having a prescription for Librium for the next several days until she can see her primary care at the beginning of next week. Urged her to return if any worsening symptoms or any concerns. She agrees with the plan. Will discharge home. - Vital Signs Vital signs: Temp Pulse Resp BP Pulse Ox 98.1 F 60 16 154/91 H 96 10/31/18 13:23 10/31/18 13:23 10/31/18 13:23 10/31/18 13:23 10/31/18 13:23 Discharge - Discharge Clinical Impression: Medication refill, History of alcohol use Condition: Stable Disposition: HOME, SELF-CARE Additional Instructions: Take medicine as prescribed. Return if worse. Follow up with your primary care physician without fail. Prescriptions: Chlordiazepoxide HCl [Librium 25 mg Capsule] 1 cap PO BID #10 capsule Referrals: [facility] [Primary Care Provider] - Follow up in 3-5 days
== END 2018-10-31 14:00 | disposition home or self-care (01) ==
LOC: ER 13:20
DX: Z76.0 Encounter for issue of repeat prescription (principal); F10.10 Alcohol abuse, uncomplicated; Z79.899 Other long term (current) drug therapy; F17.200 Nicotine dependence, unspecified, uncomplicated; I50.9 Heart failure, unspecified; I11.0 Hypertensive heart disease with heart failure
CPT/HCPCS: 99281

== ENCOUNTER 2018-11-07 13:40 | Emergency (ER) | payer MEDICAID ==
[2018-11-07 13:49] VITALS: BP 125/69
--- NOTE | 2018-11-07 14:53 | ER Document Report ---
HPI - HPI Patient complains to provider of: med refill Onset: Other Quality of pain: No pain Pain Level: 0 Context: This 62-year-old female presents emergency department with request for medication refill for her Librium. Patient reports she [facility] She went there she filled out the paperwork but they were unable to see her because they did not have a provider that day. So she was scheduled to go back on November 18. Patient reports that she has 2 Librium left. Patient reports she has not had any alcohol to drink. Patient denies suicidal/ homicidal ideations. Patient reports she is also diabetic with other health issues. She reports she just obtained her Medicaid. Until then she was going to the [facility]. Patient is very calm happy excited that she has insurance and a provider to follow-up with. Associated Symptoms: None Exacerbated by: Denies Relieved by: Denies Similar symptoms previously: Yes Recently seen / treated by doctor: Yes - REPRODUCTIVE Reproductive: DENIES: : Past Medical History - General Information source: Patient - Social History Smoking Status: Unknown if Ever Smoked Cigarette use (# per day): No Frequency of alcohol use: None Drug Abuse: None Family History: Reviewed & Not Pertinent. denies: CAD, DM, Hypertension Patient has suicidal ideation: No Patient has homicidal ideation: No - Past Medical History Cardiac Medical History: Reports: Hx Congestive Heart Failure, Hx Hypertension Denies: Hx DVT, Hx Heart Attack, Hx Pulmonary Embolism Pulmonary Medical History: Denies: Hx Asthma, Hx Bronchitis, Hx COPD, Hx Pneumonia, Hx Tuberculosis Neurological Medical History: Denies: Hx Seizures Endocrine Medical History: Reports: Hx Diabetes Mellitus Type 2. Denies: Hx Diabetes Mellitus Type 1, Hx Hyperthyroidism, Hx Hypothyroidism Renal/ Medical History: Denies: Hx End Stage Renal Disease, Hx Kidney Stones, Hx Peritoneal Dialysis GI Medical History: Reports: Hx Gastroesophageal Reflux Disease. Denies: Hx Cirrhosis, Hx Hepatitis, Hx Ulcer Musculoskeletal Medical History: Reports Hx Arthritis, Denies Hx Multiple Sclerosis Skin Medical History: Denies Hx Eczema, Denies Hx Psoriasis Psychiatric Medical History: Reports: Hx Depression Denies: Hx Bipolar Disorder, Hx Schizophrenia Infectious Medical History: Denies: Hx Hepatitis Past Surgical History: Reports: Hx Appendectomy, Hx Section, Hx Hysterectomy, Hx Pacemaker - Immunizations Hx Diphtheria, Pertussis, Tetanus Vaccination: No Hx Pneumococcal Vaccination: 02/27/16 Vertical Provider Document - CONSTITUTIONAL Agree With Documented VS: Yes Exam Limitations: No Limitations General Appearance: WD/WN, No Apparent Distress - INFECTION CONTROL TRAVEL OUTSIDE OF THE [place] IN LAST 30 DAYS: No - HEENT HEENT: Atraumatic, Normocephalic - NECK Neck: Supple - RESPIRATORY Respiratory: No Respiratory Distress - CARDIOVASCULAR Cardiovascular: Regular Rate - MUSCULOSKELETAL/EXTREMETIES Musculoskeletal/Extremeties: MAEW, FROM - NEURO Level of Consciousness: Awake, Alert, Appropriate Motor/Sensory: No Motor Deficit - DERM Integumentary: Warm, Dry Course - Re-evaluation Re-evalutation: 11/07/18 15:08 This 62-year-old female presents emergency department with request for medication refill for her Librium. Patient has 2 Librium's left. Patient reports she has NOT been drinking since she has been on the medication. She denies suicidal or homicidal ideations. Patient is very calm happy excited because she has insurance. Reports she has an appointment with primary care provider on November 18. Patient was instructed on Librium. Instructed to return the emergency department for any suicidal or homicidal thoughts. Patient was also encouraged to abstain from alcohol. She verbalized understanding to all instructions. Dictation of this chart was performed using voice recognition software; therefore, there may be some unintended grammatical errors. - Vital Signs Vital signs: Temp Pulse Resp BP Pulse Ox 98.7 F 74 18 125/69 95 11/07/18 13:48 11/07/18 13:48 11/07/18 13:48 11/07/18 13:48 11/07/18 13:48 Discharge - Discharge Clinical Impression: Medication refill Condition: Stable Disposition: HOME, SELF-CARE Instructions: Benzodiazepines ([facility]) Additional Instructions: *You have been evaluated for medication refill *Take medication as prescribed *[facility] as scheduled *Return to ED for worsening condition change, needs Prescriptions: Chlordiazepoxide HCl [Librium 25 mg Capsule] 1 cap PO BID #20 capsule Referrals: [facility] [Primary Care Provider] - Follow up as needed
== END 2018-11-07 15:15 | disposition home or self-care (01) ==
LOC: ER 13:40
DX: Z76.0 Encounter for issue of repeat prescription (principal)
CPT/HCPCS: 99281

== ENCOUNTER 2019-04-10 10:13 | Day surgery (SDC) | payer MEDICAID ==
[2019-04-10] MEDS ORDERED: PROPOFOL INJ 200 MG/20 ML VIAL IV ONE ×2 (10:57→13:22)
--- NOTE | 2019-04-10 13:30 | EKG REPORT ---
SEVERITY:- ABNORMAL ECG - ATRIAL-PACED RHYTHM : Confirmed by: Jayson Nunez MD 10-Apr-2019 13:30:00
--- NOTE | 2019-04-10 15:16 | Operative Report ---
Operative Report DATE OF SURGERY: 04/10/19 Operative Report: The risk, benefits and alternatives of the procedure including the risk of bleeding, perforation requiring surgery are explained to the patient in detail and informed consent is obtained. Timeout was called. Propofol medication is administered. Rectal examination is done which did not reveal any masses, tears or fissures. Colonoscopy performed to the cecum. Prep was good. All segments visualized. Retroflexion maneuver performed. PREOPERATIVE DIAGNOSIS: Colorectal cancer screening POSTOPERATIVE DIAGNOSIS: Mild right-sided inflammation status post biopsy. Internal hemorrhoids OPERATION: Colonoscopy with biopsy SURGEON: RAUL NORMAN ANESTHESIA: LMAC TISSUE REMOVED OR ALTERED: As noted above. COMPLICATIONS: None. ESTIMATED BLOOD LOSS: None. INTRAOPERATIVE FINDINGS: As noted above. PROCEDURE: Patient tolerated the procedure well. No immediate postprocedure complications are noted. Patient is discharged in good condition. Discharge date 04/10/2019. Discharge diet: Regular. Discharge activity: Regular. Wait on the pathology. Patient is instructed to call the office or proceed to the emergency room should there be any further problems or questions. 10-year surveillance colonoscopy if biopsies are negative.
[2019-04-10 15:59] VITALS: BP 146/86
== END 2019-04-10 15:40 | disposition home or self-care (01) ==
LOC: OROUT 10:13
PROVIDERS: ATTEND Internal Medicine Gastroenterology
DX: Z12.11 Encounter for screening for malignant neoplasm of colon (principal); K52.9 Noninfective gastroenteritis and colitis, unspecified; K64.8 Other hemorrhoids; E11.9 Type 2 diabetes mellitus without complications; I49.9 Cardiac arrhythmia, unspecified; Z79.84 Long term (current) use of oral hypoglycemic drugs; Z79.899 Other long term (current) drug therapy
CPT/HCPCS: 45380; 82962; 88305 ×2; 93005; 93010; 00812; J2704; 812

== ENCOUNTER 2019-05-05 09:42 | Day surgery (SDC) | payer MEDICAID ==
[~2019-05-05 09:42] MED LIST: PROPOFOL INJ 200 MG/20 ML VIAL IV ONE
[2019-05-05 11:12] VITALS: BP 128/73
--- NOTE | 2019-05-05 12:02 | Operative Report ---
Operative Report DATE OF SURGERY: 05/05/19 Operative Report: The risks benefits and alternatives of the procedure explained to the patient in detail and informed consent is obtained.A GIF Olympus video scope was inserted into the patient's mouth and hypopharynx ,the esophagus is identified intubated and insufflated, the scope was then advanced through the esophagus stomach and duodenum ,retroflexion maneuver is done the esophagus stomach and first and second portions of the duodenum examined PREOPERATIVE DIAGNOSIS: Dyspepsia, GERD dysphagia. Epigastric pain POSTOPERATIVE DIAGNOSIS: Gastritis status post biopsy rule out Helicobacter pylori. Esophagitis OPERATION: EGD with biopsy SURGEON: RAUL NORMAN ANESTHESIA: LMAC TISSUE REMOVED OR ALTERED: As noted above. COMPLICATIONS: None. ESTIMATED BLOOD LOSS: None. INTRAOPERATIVE FINDINGS: As noted above. PROCEDURE: Patient tolerated the procedure well. No immediate postprocedure complications are noted. Patient is discharged in good condition. Discharge date 05/05/2019. Discharge diet: Regular. Discharge activity: Regular. 2 to 3-week follow-up to discuss findings. Patient is instructed to call the office or proceed to the emergency room should there be any further problems or questions. Wait on the pathology.
== END 2019-05-05 11:15 | disposition home or self-care (01) ==
LOC: END 09:42
PROVIDERS: ATTEND Internal Medicine Gastroenterology
DX: K20.9 Esophagitis, unspecified (principal); K29.50 Unspecified chronic gastritis without bleeding; Z87.891 Personal history of nicotine dependence; Z79.84 Long term (current) use of oral hypoglycemic drugs; Z79.899 Other long term (current) drug therapy; E11.9 Type 2 diabetes mellitus without complications; Z95.0 Presence of cardiac pacemaker
CPT/HCPCS: 43239; 82962; 88305 ×2; 00731; J2704; 731